=== PATIENT | female | born 1975 | race Caucasian/White ===

== ENCOUNTER 2023-02-01 12:44 | Outpatient (AMB) | payer OTHER, SELFPAY ==
--- NOTE | 2023-02-01 13:07 | HO.SPINEOV ---
Intake Intake Visit Reasons: L5 nerve root comp Intake Note: Ms. Briscoe is here today c/o now back pain. MRI done @ [place]. [employer] Required: No Assessment & Plan Assessment & Plan (1) Back pain: Code(s): M54.9 - Dorsalgia, unspecified Plan Dear Manda, Thank you for referring Mrs Briscoe to our office today. She is a very nice 47-year-old female presents to the office today for evaluation of chronic back pain. She remembers about 15 years ago when her children were young, she had strained her back and had an extended period of time off and on and off dealing with pain after that. Sometime around November of this year, she was walking around her desk and felt an acute onset of pain as well as a feeling of pain and burning into her hips. There is also an awkward sensation that is difficult to describe does going down into her thighs. She had never felt the hip burning pain like that before. She has been going to a number of different conservative treatments in order to try to help with the situation. This would include PT, Advil, yoga etc.. She has not done any cortisone injections at this point. The intensity of the pain she had that day is gone but she still continues to have a chronic nagging back pain. 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 She has not been as consistent with her activities and core exercises as she would like. She underwent an MRI of the lumbar spine showing degenerative disc disease with lumbar stenosis and came today for evaluation. PMH: She is otherwise healthy Social hx: She does not smoke, drink or use any recreational drugs Medications: Spironolactone Allergies: Bactrim gives her rash Physical exam: She is awake alert oriented no acute distress, she has full strength of bilateral lower extremities, normal reflexes, normal gait Imaging review: Lumbar MRI done at [place] reveals [id number] degenerative disc disease at multiple levels of the lumbar spine. 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 At L4-5 she has a concentric disc bulge with moderate central canal stenosis and narrowing of the lateral recess bilaterally. She has no misalignment of the spine. There are no fractures. The report suggests that there are annular tears at L3-4 and L4-5 but these are rather subtle. Impression: 47-year-old female presents to the office today with acute on chronic flare-up of back pain a few months back. The intensity of the acute pain she experienced initially is gone but she still dealing with the aches that run up along her lumbar spine and even to some degree into her thoracic region. At this time she has no radiculopathy or claudicating pain. It is primarily a back pain issue were dealing with. She has [id number] disc degeneration at multiple levels. There is nothing there that looks bad enough to need surgery. I am not sure if these have any connection to her back pain or if it is something more low the long the lines of a chronic muscle issue related to her posture over the computers at work. She does seem to get some level of improvement when she is consistent with her exercise regimen and yoga. We discussed the natural history of degenerative disc disease. At this time I think she should just continue with attempting to fix this using conservative measures. I do not think there is any role for cortisone shots. I think continuing to work with the therapists and being more consistent with her exercise regimen will help significantly. If she starts to develop any shooting pains down the leg, tingling or numbness she will come back to see us as that would be more consistent with the stenosis and nerve impingement we see at L4-5. She will call us down the road if something changes. Thank you for allowing us to care for your patient. The total time spent with this visit with this patient was 45 minutes reviewing history, physical exam, lumbar imaging review, and implementation of treatment plan or further diagnostic testing Chet Hall MD,PhD [facility] Coding Level of Care Code New Pt Level 4 (52124) Diagnoses Back pain M54.9
== END 2023-02-01 13:27 | disposition home or self-care (01) ==
PROVIDERS: PCP Internal Medicine; Referring Provider Internal Medicine; Visit Provider Physician Assistant
DX: M54.9 Dorsalgia, unspecified (principal)
CPT/HCPCS: 99204

== ENCOUNTER → 2023-02-01 12:44 | Outpatient (BNVA) | payer OTHER, SELFPAY | PROVIDERS: PCP Internal Medicine; Visit Provider Physician Assistant ==